=== PATIENT | female | born 1995 | race Caucasian/White ===

== ENCOUNTER 2022-02-26 22:52 | Emergency (ER) | payer SELFPAY ==
[~2022-02-26] VITALS: Ht 162.6 cm; Wt 95.3 kg
[2022-02-26 23:00] VITALS: BP 123/65
--- NOTE | 2022-02-26 23:19 | NUR ---
[employer]BLER AT BEDSIDE
[2022-02-26 23:30] LABS: APPEARANCE,URINE SL CLOUDY (CLEAR); BILIRUBIN,URINE NEGATIVE (NEGATIVE); BLOOD, URINE NEGATIVE (NEGATIVE); COLOR,URINE YELLOW (YELLOW); LEUKOCYTE ESTERASE ,URINE NEGATIVE (NEGATIVE); NITRITE, URINE NEGATIVE (NEGATIVE); UGLUCOSE NEGATIVE (NEGATIVE)
--- NOTE | 2022-02-26 23:34 | NUR ---
26YR FEMALE BIB SELF C/O VAG BLEED X1 DAY. POSITIVE PREG TEST. PT STATES 6 WEEKS PREG. DOES NOT REMEMBER LAST LMP. MOD VAG BLEEDING THIS AM CURRENTLY NO BLEEDING. LOW ABD PAIN TO LOW BACK PAIN. PAIN LEVEL 5/10 CRAMPING. PT IS A&OX4 LAO SPEAKING ONLY. SKIN IS WARM AND DRY AND INTACT. SIDE RAILS UP X1 BED AT LOWEST POSITION. NKDA NO MED HX
[2022-02-26 23:44] LABS: BASOPHILS % (AUTO) 0.3 % (0.0-2.0); EOSINOPHILS # (AUTO) 0.1 K/uL (0-0.4); EOSINOPHILS % (AUTO) 0.5 % (0.0-4.0); HEMATOCRIT 36.3 % (36-48); LYMPHOCYTES # (AUTO) 3.7 K/uL (2.5-16.5); MEAN CORPUSCULAR HEMOGLOBIN 28 pg (27-31); MEAN CORPUSCULAR HGB CONC 33 g/dL (33-37); MEAN CORPUSCULAR VOLUME 83.4 fL (80-94); MONOCYTES # (AUTO) 0.6 K/uL (0.8-1.0); MONOCYTES % (AUTO) 6.3 % (1.7-9.3); NEUTROPHILS # (AUTO) 5.8 K/uL (1.8-7.7); NEUTROPHILS % (AUTO) 56.9 % (42.2-75.2); PLATELET COUNT (AUTO) 298 K/uL (140-450); RED BLOOD CELL COUNT(AUTO) 4.36 MIL/uL (4.20-5.40); RED CELL DISTRIBUTION WIDTH 14.9 % (11.6-13.7); WHITE BLOOD COUNT (AUTO) 10.2 K/uL (4.8-10.8)
--- NOTE | 2022-02-26 23:44 | NUR ---
ULTRASOUND AT BEDSIDE
[2022-02-27] MEDS ORDERED: DOCO200C2 PO (01:00)
--- NOTE | 2022-02-27 01:13 | NUR ---
PT RESTING IN BED. RESP EVEN AND UNLABORED. PENDING ULTRASOUND RESULTS
[2022-02-27 01:36] VITALS: BP 123/65
--- NOTE | 2022-02-27 01:36 | NUR ---
Chart checked and completed.
--- NOTE | 2022-02-27 01:36 | NUR ---
Patient discharged with v/s stable. Written and verbal after care instructions given and explained. Patient alert, oriented and verbalized understanding of instructions. Ambulatory with steady gait. All questions addressed prior to discharge. ID band removed. Patient advised to follow up with PMD. Rx of DHA given.
== END 2022-02-27 01:36 | disposition home or self-care (01) ==
LOC: MED 22:52
DX: O20.0 Threatened abortion (principal); Z3A.01 Less than 8 weeks gestation of pregnancy; Z79.899 Other long term (current) drug therapy
CPT/HCPCS: 36415; 76817; 81003; 81025; 84702; 85025; 86900; 86901; 99284; Q0092